=== PATIENT | male | born 1970 | race Caucasian/White ===

== ENCOUNTER 2021-06-22 09:15 | Outpatient (CLI) | payer OTHER, SELFPAY ==
--- NOTE | 2021-06-22 11:00 | NEURO_ITS ---
Impression: # Complains of left hand numbness. # Moderate left ulnar neuropathy across the elbow. # Needle/EMG exam revealed neurogenic changes in 1st DI and ADM muscles. Nerve Conduction Studies Anti Sensory Summary Table Stim Site NR Peak (ms) P-T Amp (?V) Site1 Site2 Delta-P (ms) Dist (cm) Tc (m/s) Left Median Anti Sensory (2-3nd Digit) Wrist 3.4 30.3 Wrist 2-3nd Digit 3.4 14.0 41 Wrist 3.6 22.7 Wrist 2-3nd Digit 3.4 14.0 41 Left Radial Anti Sensory (Base 1st Digit) Wrist 2.1 18.7 Wrist Base 1st Digit 2.1 0.0 Left Ulnar Anti Sensory (5th Digit) Wrist 3.7 30.4 Wrist 5th Digit 3.7 14.0 38 Motor Summary Table Stim Site NR Onset (ms) O-P Amp (mV) Site1 Site2 Delta-0 (ms) Dist (cm) Tc (m/s) Left Median Motor (Abd Poll Brev) Wrist 4.1 2.2 Elbow Wrist 5.6 32.0 57 Elbow 9.7 2.4 Left Ulnar Motor (Abd Dig Minimi) Wrist 3.9 3.0 A Elbow Wrist 6.5 34.0 52 A Elbow 10.4 1.1 B Elbow Wrist 4.7 25.0 53 B Elbow 8.6 0.7 F Wave Studies NR F-Lat (ms) L-R F-Lat (ms) Left Median (Mrkrs) (Abd Poll Brev) 27.08 Left Ulnar (Mrkrs) (Abd Dig Min) 25.78 EMG Side Muscle Nerve Root Ins Act Fibs Amp Dur Recrt Comment Left 1stDorInt Ulnar C8-T1 Nml Nml Incr >12ms Reduced Left Ext Indicis Radial (Post Int) C7-8 Nml Nml Nml Nml Nml Left Ext Digitorum Radial (Post Int) C7-8 Nml Nml Nml Nml Nml Left BrachioRad Radial C5-6 Nml Nml Nml Nml Nml Left PronatorTeres Median C6-7 Nml Nml Nml Nml Nml Left Abd Poll Brev Median C8-T1 Nml Nml Nml Nml Nml Left ABD Dig Min Ulnar C8-T1 Nml Nml Incr >12ms Reduced Left Biceps Musculocut C5-6 Nml Nml Nml Nml Nml Left Triceps Radial C6-7-8 Nml Nml Nml Nml Nml Left Deltoid Axillary C5-6 Nml Nml Nml Nml Nml MTDD
== END 2021-06-22 09:16 | disposition home or self-care (01) ==
LOC: ANHNEURO 09:20
PROVIDERS: PCP Family Medicine; Visit Provider Family Medicine
DX: R20.2 Paresthesia of skin (principal); G56.22 Lesion of ulnar nerve, left upper limb
CPT/HCPCS: 95886; 95909

== ENCOUNTER 2021-08-11 15:02 | Outpatient (CLI) | payer OTHER, SELFPAY ==
--- NOTE | ~2021-08-11 | XR_ITS ---
EXAMINATION: XR hand LT min 3V DATE: 08/11/2021 15:18 INDICATION: Anesthesia of skin. Numbness and tingling of left hand fifth digit. TECHNIQUE: 3 views of left hand were obtained. COMPARISON: None. FINDINGS: Bone alignment is normal. No fracture. There is moderate osteoarthritis of first carpometac arpal joint and mild osteoarthritis of second metacarpophalangeal joint and proximal interphalangeal joint. IMPRESSION: 1. Polyarticular osteoarthritis. Reviewed, dictated and finalized at location A.
== END 2021-08-11 15:03 | disposition home or self-care (01) ==
LOC: ANHIMG 15:06
PROVIDERS: PCP Family Medicine; Visit Provider Orthopaedic Surgery
DX: R20.0 Anesthesia of skin (principal); R20.2 Paresthesia of skin; M19.042 Primary osteoarthritis, left hand
CPT/HCPCS: 73130

== ENCOUNTER → 2021-10-22 00:08 | Outpatient (CLI) | payer OTHER, SELFPAY ==
[2021-10-23 16:52] LABS: SARS-CoV-2 RNA PCR Negative
== END ==
PROVIDERS: PCP Family Medicine; Visit Provider Orthopaedic Surgery
DX: Z01.812 Encounter for preprocedural laboratory examination (principal); Z20.822 Contact with and (suspected) exposure to COVID-19
CPT/HCPCS: C9803; U0003; U0005

== ENCOUNTER 2021-10-25 00:08 | Day surgery (SDC) | payer OTHER, SELFPAY ==
[2021-10-20 09:42] VITALS: BMI 28.0
--- NOTE | 2021-10-20 10:03 | PC.NURSE ---
Report to the Outpatient Waiting Room, entrance under the green pavilion located off [facility], at time 1030 on date 10/25/21. OR Time: 1230. - You will be asked a series of questions to screen for COVID 19 for your protection. - A mask is required within the hospital. - No visitors are allowed at this time. Preoperative COVID Testing Requirements: No COVID Test needed if: (proof is required; if not received patient will have Rapid Test prior to entry) - Patient has received COVID Vaccine at least 14 days prior to procedure date or - Patient has positive COVID test result within last 90 days of surgery date. COVID Test needed if above criteria is not met If not COVID vaccinated a COVID test must be conducted within 72 hours of surgery and patient is asked to isolate self from time of testing until procedure. You will go to the [facility] for your COVID testing. The [facility] Testing site is located at the corner of [address] [facility]. COVID TEST 10/22 AT 0835 You will only be called if COVID results are positive and your surgeon may reschedule your elective surgery date. Patients may have clear liquids (water, carbonated beverages, clear teas, apple juice) until 3 hours prior to surgery with a maximum of 20 ounces. - No food from midnight until time of surgery Take the following medications with a SIP of water the morning of surgery: AMIODARONE Medications to discontinue per physician: FOZIA Date to take last dose: 10/[address] CHUN Please no make-up, nail pu[place], hairspray, perfume, deodorant, or body powder the day of surgery. No jewelry (including any body piercings) or valuables the day of surgery, leave them at home. Please take a shower or bath the night before, or the morning of, surgery with an antibacterial soap. Wear comfortable, loose fitting clothing. Children are encouraged to wear pajamas. - Jewelry must be removed prior to entering the operating room. Rings and piercings that are not removed may be cut off. - The hospital will not accept responsibility for valuables. - Please leave all valuables, including medications, at home the day of surgery. If you are going home after surgery, a licensed mechanic driver must drive you home. - NO public transportation without another adult. - We recommend that an adult stay with you for 24 hours following discharge. - We also recommend that you do not drive, make important decision, drink alcoholic beverages, or take any drugs that were not prescribed by your health care provider for at least 24 hours after your discharge time. For Pediatric surgeries, we recommend two adults accompany the child home (only one inside the building at this time). Follow any additional instructions given to you from your surgeon. Telephone instructions given to SADE GREGORY and asked if any additional questions and then verbalized understanding. Patient advised to call surgeon office or pre surgery nurse liaison [phone] if any additional questions.
[2021-10-25] VITALS (8 sets, daily range): BP systolic 86–142; BP diastolic 54–82; PULSE 49–57; RESP 7–14; TEMP 36.3; O2SAT 95–100
[2021-10-25] MEDS: ACETAMINOPHEN 500 MG TABLET 1000 MG PO (10:33)
[2021-10-25] MEDS: KETOROLAC 15 MG/ML VIAL (*BKC) IV PUSH (10:56)
--- NOTE | 2021-10-25 11:23 | WPDHPUPDATE1 ---
History and Physical Update Update Date/Time: 10/25/21 11:23 History and Physical has been reviewed, including an updated exam of the patient. There are NO changes in the patient's condition. Risks, benefits, and alternatives have been discussed and questions answered. Patient agrees to proceed with procedure.
--- NOTE | 2021-10-25 11:29 | WPDANESEPPF ---
Anes - Initial Pre Proc Eval Procedure: Operation Date: 10/25/21 12:30 Proposed Procedures p Left Ulnar Nerve Transposition - Mukund Bautista MD Date/Time: 10/25/21 11:29 Surgeon: Mukund Bautista MD Pre Op Diagnosis: left cubital tunnel syndrome Patient Data Age: 51 Gender: M Height: 1.97 m Weight: 111.8 kg Allergies Allergy/AdvReac Type Severity Reaction Status Date / Time Penicillins Allergy Unknown itchy Verified 10/25/21 10:29 Home Medications Medication Instructions Recorded Confirmed Type aspirin 81 mg tablet,delayed 81 mg PO DAILY 01/22/21 10/25/21 History release amiodarone 200 mg tablet 200 mg PO DAILY 04/01/21 10/25/21 History apixaban 5 mg tablet 5 mg PO BID 04/01/21 10/25/21 History modafinil 200 mg tablet 200 mg PO QAM #30 tablet 09/28/21 10/25/21 Rx atorvastatin 40 mg PO HS 10/20/21 10/25/21 History sertraline 50 mg PO HS 10/20/21 10/25/21 History valsartan 60 mg PO DAILY 10/25/21 10/25/21 History Patient hx anesthesia problems: none Family hx anesthesia problems: none Results Review: All pre-operative results and documents have been reviewed as part of the pre-operative evaluation. [facility] Past Medical History Medical History Abnormal involuntary movement Abnormal NCS (nerve conduction studies) Atrial fibrillation BMI 26.0-26.9,adult BMI 28.0-28.9,adult BMI 29.0-29.9,adult CAD (coronary artery disease) Congestive heart failure Coronary arteriosclerosis in [place] artery Cubital tunnel syndrome on left Daytime sleepiness Decreased libido Depression due to physical illness Elevated glucose Hand eczema Hypotension Neck pain Numbness and tingling in left hand Orthostatic hypotension Pacemaker Serum albumin decreased Stroke Vasovagal attack Surgical History Surgical History History of cardiac defibrillator placement Family History Family History Father Family history of premature coronary heart disease Hypertension Cerebrovascular accident Family history of diabetes mellitus in first degree relative Social History Social History Smoking packs per day: 2 Smoking cigarettes per day: 40.0 Years smoked: 31 Smoking pack-years: 62.00 Smoking status: Former smoker Tobacco type: cigarettes Smoking end date: 12/21/20 Alcohol intake: current Alcohol use details: 2/MONTH Substance use: never Substance use type: does not use Living arrangements: with family Additional occupation/education comments: Self Employed Gender identity (if verbalized by the patient): Male Spiritual care concerns: No Anes - Eval Final PreProcedure Day of Procedure 10/25/21 11:29 Patient weight: overweight Heart: regular rate and rhythm Lungs: clear to auscultation and normal air movement Airway: Mallampati scale class III Neurological: alert and oriented Last oral intake: >/= 8 hours ASA classification: IV Emergent: no Anesthetic plan: proceed Anesthesia type and monitoring: general GIVS and standard monitoring Results Review: All pre-operative results and documents have been reviewed as part of the pre-operative evaluation. Informed Consent: The patient's anesthetic plan and its attendant risks and benefits were discussed with the patient/family/POA. Questions were solicited and answers provided to the satisfaction of the patient/family/POA.
[2021-10-25] MEDS: ceFAZolin 2 GM/D5W 50 ML 2 GM/50 ML BAG IVPB (12:02)
[2021-10-25] MEDS: BUPIVACAINE/EPINEPHRINE 0.25% 50 ML VIAL 20 ML INFILTRATE (12:44)
[2021-10-25] MEDS: LACTATED RINGERS 1,000 ML 30 ML IV CONT ×2 (13:39)
--- NOTE | 2021-10-25 13:56 | P.OP_ITS ---
Procedure Note - Detailed Date of Procedure 10/25/21 Pre-op Diagnosis left cubital tunnel syndrome Post-op Diagnosis same Procedure Performed Left ulnar nerve subcutaneous transposition Surgeon Mukund Bautista MD Administrative Support Clerk Hilary Mondragon Anesthesia general Description of Procedure The patient was identified and proper site identified. He was taken to the operating room and transferred to the OR table placing him supine taking care to pad his torso and extremities. After general anesthetic induction and intubation, a nonsterile tourniquet was placed high on the left arm. Left upper extremity was prepped and draped free in the usual sterile fashion. Extremity was exsanguinated and tourniquet was inflated to 250 millimeters of mercury remaining up for the approximately 55 minutes. A curvilinear incision was made over the cubital tunnel. Subcutaneous tissue was sharply dissected down to the deep fascia of the forearm. Hemostasis was carried out throughout the procedure with bipolar electrocautery. Care was taken to protect neurovascular structures. The ulnar nerve was identified and freed up from the cubital tunnel. It was able to be moved anterior to the medial epicondyle without any kinking or undue tension on the nerve. A flap to secure the transposition was elevated off of the common flexor pronator origin of the medial epicondyle and secured to the subcutaneous tissue of the anterior flap of skin with 2-0 Vicryl suture holding the nerve in a transposed position also without undue tension. The elbow was taken through range of motion in her was able to pass freely through the transposed space. Wound was irrigated with copious amount of sterile saline. Subcu was reapproximated with 2-0 Vicryl and then 4-0 Monocryl subcuticular stitch with Steri-Strips was used for the skin. Sterile dressing was applied. Tourniquet was released. Patient was awakened, extubated and taken to recovery in stable condition. There were no known intraoperative complications. Estimated blood loss was negligible. He received perioperative antibiotics. Estimated Blood Loss 5 Tourniquet Time 55 Drains No Packing No Pathology none sent Complications No immediate complications Condition stable Disposition PACU
== END 2021-10-25 16:40 | disposition home or self-care (01) ==
PROVIDERS: PCP Family Medicine; Visit Provider Orthopaedic Surgery
PROC: (CPT 64718; principal; 2021-10-25 12:30)
DX: G56.22 Lesion of ulnar nerve, left upper limb (principal); I25.10 Atherosclerotic heart disease of native coronary artery without angina pectoris; I48.91 Unspecified atrial fibrillation; I50.9 Heart failure, unspecified; Z79.01 Long term (current) use of anticoagulants; Z79.82 Long term (current) use of aspirin; Z95.810 Presence of automatic (implantable) cardiac defibrillator; Z87.891 Personal history of nicotine dependence
CPT/HCPCS: 64718; A4565; A9270; J0690; J1885; J2250; J2270; J2405; J2704; J7120

== ENCOUNTER 2022-12-23 07:25 | Outpatient (CLI) | payer OTHER, SELFPAY ==
--- NOTE | 2022-12-23 07:51 | ECHO_ITS ---
Patient Info Name: Adair Draper Age: 52 years : 1970 Gender: Male Ht: 78 in Wt: 211 lbs BSA: 2.30 m2 HR: 65 bpm BP: 154 / 93 mmHg Technical Quality: Good Exam Date: 12/23/2022 8:04 AM Exam Location: [facility] Patient Status: Outpatient Admit Date: 12/23/2022 Staff Ordering Physician: Silvio Cormier DO Director Of Acquisitions: Jovanny Steiner RDCS, RT Attending Provider: Silvio Cormier DO Referring Physician: Casa CORNEJO; Exam Type: CA echo doppler color flow Study Info Indications I42.9 - Cardiomyopathy, unspecified Complete two-dimensional, color flow and Doppler transthoracic echocardiogram is performed. Strain analysis performed. Summary 1. Complete two-dimensional, color flow and Doppler transthoracic echocardiogram is performed. 2. Left ventricular chamber dimension is mildly enlarged. 3. Left ventricular systolic function is moderately globally reduced, estimated at 35-40%. 4. The left ventricular diastolic function is abnormal. 5. E/e' 10 is mildly elevated. 6. Global longitudinal strain is abnormal at -13.2%. 7. Linear artifact in right ventricle suggestive of catheter(s), pacemaker lead(s), or ICD lead(s). 8. Left atrial chamber dimension is mildly enlarged. 9. Linear artifact in the right atrium suggestive of catheter(s), pacemaker lead(s), or ICD lead(s). 10. There is mild aortic valve sclerosis. 11. There is mild mitral valve regurgitation. 12. There is trace tricuspid valve regurgitation. 13. No pulmonary hypertension, estimated pulmonary arterial systolic pressure is 27 mmHg. Left Ventricle E/e' 10 is mildly elevated. Global longitudinal strain is abnormal at -13.2%. Left ventricular chamber dimension is mildly enlarged. Left ventricular systolic function is moderately globally reduced, estimated at 35-40%. The left ventricular diastolic function is abnormal. Right Ventricle Right ventricular systolic function is normal and with normal TAPSE 2.2 cm. Linear artifact in right ventricle suggestive of catheter(s), pacemaker lead(s), or ICD lead(s). Right ventricular chamber dimension is normal. Left Atria Left atrial chamber dimension is mildly enlarged. Right Atria Linear artifact in the right atrium suggestive of catheter(s), pacemaker lead(s), or ICD lead(s). Right atrial chamber dimension is normal. Aortic Valve The aortic valve is trileaflet. There is mild aortic valve sclerosis. There is no aortic valve stenosis. There is no aortic valve regurgitation. Pulmonic Valve There is no pulmonic regurgitation. Mitral Valve There is no mitral valve stenosis. There is mild mitral valve regurgitation. Tricuspid Valve There is trace tricuspid valve regurgitation. No pulmonary hypertension, estimated pulmonary arterial systolic pressure is 27 mmHg. Pericardium/Pleural There is no pericardial effusion. Inferior Vena Cava Normal inferior vena cava with >50% collapse upon inspiration consistent with normal right atrial pressure, 5 mmHg. Aorta The aortic root size at the sinus of Valsalva is normal. Left Ventricular Outflow Tract Name Value Normal LVOT 2D LVOT Diameter 2.2 cm LVOT Doppler
== END 2022-12-23 07:26 | disposition home or self-care (01) ==
LOC: ANHCARD 07:26
PROVIDERS: PCP Family Medicine; Visit Provider Internal Medicine Cardiovascular Disease
DX: I42.9 Cardiomyopathy, unspecified (principal); I34.0 Nonrheumatic mitral (valve) insufficiency
CPT/HCPCS: 93306